=== PATIENT | male | born 1970 | race Caucasian/White ===

== ENCOUNTER 2020-11-11 06:54 | Day surgery (SDC) | payer OTHER ==
[~2020-11-11] VITALS: Ht 177.8 cm; Wt 118.2 kg
[~2020-11-11 06:54] MED LIST: CLONIDINE HCL0.1 MG PO; COZAAR100 MG PO; GLUCOPHAGE500 MG PO; LIPITOR40 MG PO; NORVASC5 MG PO
[2020-11-11 07:22] LABS: BASOPHILS 0.1 % (0-2); EOSINOPHILS 4.5 % (0-7); HEMATOCRIT 44.2 % (42.0-54.0); HEMOGLOBIN 14.8 g/dL (13.5-17.5); IMMATURE GRANULOCYTES 0.1 % (0-5); LYMPHOCYTE ABS# 2.97 10x3/uL (1.32-3.57); LYMPHOCYTES 34.9 % (15-50); MCH 28.5 pg (26.0-34.0); MCHC 33.5 g/dL (31.0-37.0); MEAN PLATELET VOLUME 10.3 fL (7.4-10.4); MONOCYTES 6.9 % (2-11); NEUTROPHIL ABS# 4.55 10x3/uL (1.78-5.38); NEUTROPHILS 53.5 % (40-80); PLATELET COUNT 199 10x3/uL (130-400); RDW 13.5 % (11.5-14.5); WBC 8.5 10x3/uL (4.8-10.8)
[2020-11-11 07:37] LABS: CALC OSMOLALITY 281 mosm/kg (275-300); CALCIUM 8.8 mg/dL (8.5-10.1); CARBON DIOXIDE 28.3 mmol/L (21.0-32.0); CHLORIDE - SERUM 105 mmol/L (98-107); CREATININE - SERUM 0.9 mg/dL (0.6-1.3); GLUCOSE 141 mg/dL (74-106); POTASSIUM - SERUM 4.1 mmol/L (3.5-5.1); SODIUM 140 mmol/L (136-145); UREA NITROGEN 15 mg/dL (7-18); eGFR NON AFRICAN AMERICAN > 90 mL/min (90-120)
[2020-11-11 08:08] VITALS: BP 129/67; Ht 177.8 cm; Wt 118.2 kg
--- NOTE | 2020-11-11 15:25 | NUR ---
1330 PT UP TO BR WITH ASSISTANCE. UNABLE TO VOID AT THIS TIME. 1340 HUNG LITER OF NS AND HYDRATING PATIENT SO THAT HE CAN VOID. 1435 IV DC'D. CATHETER TIP INTACT. NO BLEEDING AT SITE. COBAN DRESSING APPLIED. 1459 REVIEWED DISCHARGE INSTRUCTIONS WITH PT AND HIS WHO BOTH VOICE UNDERSTANDING OF INSTRUCTIONS.
--- NOTE | 2020-12-09 12:55 | OP ---
PATIENT NAME: MILTON GARRETT MEDICAL RECORD: [id number] :66 LOCATION:D.OPS ADMISSION DATE: SURGEON: AHMET MENDEZ MD DATE OF OPERATION: 11/11/2020 PREOPERATIVE DIAGNOSIS: Symptomatic gallstones. POSTOPERATIVE DIAGNOSES: Symptomatic gallstones with hepatomegaly. PROCEDURE: 1. Laparoscopic cholecystectomy. 2. Intraoperative cholangiography. 3. A 14-gauge core needle liver biopsy. SURGEON: Ahmet Mendez MD HYDROE[employer]RIC PLANT ELECTRICAL ENGINEER: None. BLOOD LOSS: Minimal. ANESTHESIA: General. COMPLICATIONS: None. The indication for the liver biopsy was hepatomegaly. OPERATIVE COURSE: The patient was conveyed to the operating room electively on 11/11/2020. General anesthesia was induced by the anesthesia staff. The abdomen was sterilely prepped and draped. A small skin incision was accomplished in the left upper quadrant. The Veress needle was inserted through the skin incision into the peritoneal cavity. CO2 insufflation was begun. Once a sufficient pneumoperitoneum had been achieved, a 12-mm trocar was inserted through an incision at the umbilicus. Another 5-mm trocar was inserted through the incision in the epigastrium and another 5-mm trocar was inserted far laterally in the right upper quadrant. During insertion of the Veress needle and all trocars, there appeared to have been no injury to the bowels, any intraperitoneal or retroperitoneal structures. Under laparoscopic guidance, I percutaneously accessed the right upper quadrant utilizing 14-gauge core biopsy device. Cores were obtained over the convexity of the liver. The biopsy sites were made hemostatic with electrocautery. I then advanced the cholangiogram trocar. I grasped the gallbladder. I punctured the fundus of the gallbladder. I aspirated bile. I then injected dye. Fluoroscopic images were obtained and these are static images. They are sent to the radiologist for interpretation. I aspirated bile and then removed the cholangiogram trocar. The gallbladder was grasped and retracted cephalad. The infundibulum was grasped and retracted laterally. Blunt dissection was begun in the triangle of Calot. One cystic artery and one cystic duct were identified. These were clipped multiply and divided between clips. The gallbladder was then excised from its bed in the liver. It was placed within a bag retrieval device and was withdrawn through the umbilical fascial defect. OPERATIVE REPORT [id number] GARRETT,MILTON RONY The 12-mm trocars were placed and the abdomen reinsufflated. I irrigated and aspirated the right upper quadrant. There was no bleeding even at low pressure of 8. The Trip-Gilbert suture closure device and 0 Vicryl sutures were used to close the fascia at the umbilicus. All of the trocars were removed and the abdomen desufflated. The skin incision at the umbilicus was closed with interrupted 4-0 Vicryl Rapide sutures. The other skin incisions were closed with interrupted intracuticular 3-0 Vicryls. Benzoin and Steri-Strips were applied. The patient was then extubated and conveyed to post-anesthesia care unit where he was in stable condition. TRANSINT:[id number] Voice Confirmation ID: [id number] DOCUMENT ID: [id number] AHMET MENDEZ MD at 1255 CC: [id number] DICTATION DATE: 12/08/20 1440 SALES PROFESSIONAL: 12/08/20 1700 [facility] 11/11/20 [address] [place] [address]
== END 2020-11-11 14:59 | disposition home or self-care (01) ==
LOC: D.OPS 06:54
PROVIDERS: Anesthesiology; ATTEND Surgery
DX: K80.20 Calculus of gallbladder without cholecystitis without obstruction (principal); R16.0 Hepatomegaly, not elsewhere classified; I10 Essential (primary) hypertension; E11.9 Type 2 diabetes mellitus without complications; E78.5 Hyperlipidemia, unspecified; Z72.0 Tobacco use